=== PATIENT | male | born 1945 | race Caucasian/White ===

== ENCOUNTER 2020-05-26 13:00 | Outpatient (CLI) | payer MEDICARE, OTHER, SELFPAY ==
[2020-05-26 13:42] LABS: Hematocrit 34.9 % (42.0-52.0); Hemoglobin 11.9 g/dL (14.0-18.0); Immature Platelet Fraction Pct 8.2 % (0.9-11.2); Mean Corpuscular HGB Conc 34.1 g/dl (32-36); Mean Corpuscular Volume 96.7 fl (80-100); Mean Platelet Volume 11.7 fl (7.4-10.4); Platelet Count Result 132 k/mm3 (150-375); Red Blood Count 3.61 M/mm3 (4.6-6.20); Red Cell Distribution Width 12.5 % (11.5-14.5); White Blood Count 5.8 K/mm3 (4.5-10.0)
[2020-05-26 13:52] LABS: Alanine Aminotransferase 24 U/L (4-50); Albumin Level 4.6 g/dL (3.5-5.1); Alkaline Phosphatase 72 U/L (38-126); Anion Gap 5 mmol/L (8-16); Aspartate Amino Transferase 32 U/L (17-59); Bilirubin,Total 0.5 mg/dL (0.2-1.3); Blood Urea Nitrogen 30 mg/dL (9-20); Calcium 9.3 mg/dL (8.4-10.2); Carbon Dioxide 29 mmol/L (22-30); Chloride 105 mmol/L (98-107); Cholesterol 90 mg/dL (0-200); Estimated Glomerular Filt Rate > 60; Glucose 87 mg/dL (75-110); HDL Direct 40 mg/dL; Potassium 4.3 mmol/L (3.4-5.0); Sodium 139 mmol/L (137-145); Triglycerides 36 mg/dL (<150)
[2020-05-26 14:03] LABS: LDL Cholesterol Direct 43 mg/dL
[2020-05-26 14:22] LABS: Prostate Specific Antigen 0.2 ng/mL (< OR = 4.0)
[2020-05-26 14:40] LABS: Iron 64 ug/dL (49-181)
[2020-05-26 14:49] LABS: Percent Iron Saturation 22 % (20-50)
== END 2020-05-26 13:01 | disposition home or self-care (01) ==
PROVIDERS: PCP Family Medicine; Visit Provider Nurse Practitioner Family
DX: N28.9 Disorder of kidney and ureter, unspecified (principal); E78.5 Hyperlipidemia, unspecified; E11.65 Type 2 diabetes mellitus with hyperglycemia; E61.1 Iron deficiency; N40.0 Benign prostatic hyperplasia without lower urinary tract symptoms; Z12.5 Encounter for screening for malignant neoplasm of prostate; Z13.29 Encounter for screening for other suspected endocrine disorder
CPT/HCPCS: 36415; 80053; 80061; 83540; 83550; 84153; 84443; 85027; 85055; G0103

== ENCOUNTER 2020-10-16 14:45 | Emergency (ER) | payer MEDICARE, OTHER, SELFPAY ==
[2020-10-16 14:55] VITALS: BP 141/61; PULSE 79; RESP 16; TEMP 37.2; O2SAT 100
--- NOTE | 2020-10-16 15:14 | ED.EXTPRO ---
HPI - Extremity Problem General Chief complaint: Extremity Problem,Nontraumatic Stated complaint: pos hand infection Time Seen by Provider: 10/16/20 14:58 Source: patient and RN notes reviewed Mode of arrival: ambulatory Limitations: no limitations History of Present Illness HPI Narrative: Patient presents today complaining of redness and laceration to the base of the right thumb. Patient was cutting a piece of sheet metal with some tin snips 4 days ago when he cut his hand on the piece of metal. States the cut has been feeling, but the area around the cut has been becoming red and more painful. Denies numbness or tingling in the finger or hand. He is not up-to-date on his tetanus vaccine. Currently rates his pain 2/10 and has tried no [id number] treatment prior to arrival. MD Complaint: extremity pain and extremity swelling Related Data Allergies Allergy/AdvReac Type Severity Reaction Status Date / Time Penicillins Allergy Unknown Unknown Verified 05/26/20 11:16 Sulfa (Sulfonamide Allergy Unknown Unknown Verified 05/26/20 11:16 Antibiotics) Review of Systems Review of Systems: CONSTITUTIONAL: Denies body aches, fever, chills, or sweats. EYES: Denies visual changes, redness, or discharge. ENT: Denies rhinorrhea, congestion, sore throat, or otalgia. CARDIOVASCULAR: Denies chest pain, palpitations, or edema. RESPIRATORY: Denies cough or dyspnea. GASTROINTESTINAL: Denies abdominal pain, nausea, vomiting, or diarrhea. GENITOURINARY: Denies dysuria or hematuria. SKIN: Denies rash, itching, or wounds. Redness and pain to the right thumb MUSCULOSKELETAL: Denies back pain. NEUROLOGIC: Denies headache, numbness, tingling, or weakness. PSYCH: Denies depression or anxiety. [facility] Family History Family History Sibling Family history of diabetes mellitus in first degree relative Family history of coronary artery disease Mother Family history of malignant neoplasm of breast in first degree relative Social History Social History Smoking status: Never smoker Alcohol intake: never Comments At time of signature, I have reviewed and agree with nursing past medical, surgical, social and family history unless otherwise noted. Please see nursing chart for further information. There is no relevant family history pertinent to the presenting complaint Exam Narrative: GENERAL: Well-appearing, well-nourished, and in no acute distress. HEAD: Normocephalic, atraumatic. EYES: EOMI. No redness or drainage. Conjunctivae normal. ENT: Mucous membranes pink and moist. NECK: Normal AROM. CHEST: No respiratory distress. EXTREMITIES: Erythema and mild edema to the right thenar eminence. 2.5 cm healed laceration to the same area. Distal sensation intact. Capillary refill normal. Radial pulse normal. Full AROM of the right thumb without increased pain. No induration or fluctuance noted. SKIN: Warm, dry, no rash. Capillary refill normal. Normal skin turgor. NEURO: No focal deficits. Alert and oriented x3. Gait steady. PSYCH: Normal affect. No signs of depression or anxiety. Course Vital Signs Vital signs: Vital Signs Temperature 98.9 F 10/16/20 14:55 Pulse Rate 79 10/16/20 14:55 Respiratory Rate 16 10/16/20 14:55 Blood Pressure 141/61 H 10/16/20 14:55 Pulse Oximetry 100 10/16/20 14:55 Temperature 98.9 F 10/16/20 14:55 Pulse Rate 79 10/16/20 14:55 Respiratory Rate 16 10/16/20 14:55 Blood Pressure 141/61 H 10/16/20 14:55 Pulse Oximetry 100 10/16/20 14:55 Reviewed. Pt has been instructed to follow up with his PCP regarding his elevated blood pressure today. MDM - Extremity (Nontraumatic) Differential Diagnosis Differential diagnosis: Likely cellulitis and other (Abscess) Critical Care Time Critical Care Time Critical Care Time: No Discharge Plan Discharge Clinical Impressi
[2020-10-16] MEDS: TETANUS/DIPHTHERIA TOXOIDS ADSORB 0.5 ML VIAL (*BKC) IM (15:27)
== END 2020-10-16 15:32 | disposition home or self-care (01) ==
PROVIDERS: Emergency Provider Nurse Practitioner
DX: L03.113 Cellulitis of right upper limb (principal); Z23 Encounter for immunization; Z95.1 Presence of aortocoronary bypass graft
CPT/HCPCS: 90471; 90714; 99213; G0463

== ENCOUNTER 2020-10-25 11:38 | Outpatient (CLI) | payer MEDICARE, OTHER, SELFPAY ==
[2020-10-25 12:03] LABS: Basophils Percent Auto 0.5 % (0.2-1.2); Eosinophils Absolute Auto 0.3 K/mm3 (0-0.3); Eosinophils Percent Auto 4.5 % (0-4.4); Hematocrit 35.3 % (42.0-52.0); Immature Granulocyte Absolute 0.02 K/mm3 (0.00-0.031); Immature Granulocyte Percent A 0.3 % (0-0.5); Lymphocytes Absolute Auto 2.08 K/mm3 (0.9-3.2); Lymphocytes Percent Auto 35.7 % (18.3-44.2); Mean Corpuscular Hemoglobin 33.1 pg (26-34); Mean Corpuscular Volume 97.2 fl (80-100); Mean Platelet Volume 11.5 fl (7.4-10.4); Monocytes Absolute Auto 0.5 K/mm3 (0.1-0.6); Monocytes Percent Auto 8.1 % (2.6-8.5); Neutrophils Percent Auto 50.9 % (45.5-73.1); Platelet Count Result 147 k/mm3 (150-375); Red Blood Count 3.63 M/mm3 (4.6-6.20); Red Cell Distribution Width 12.3 % (11.5-14.5); White Blood Count 5.8 K/mm3 (4.5-10.0)
[2020-10-25 13:24] LABS: Folic Acid > 20.0 ng/mL (2.76->20)
== END 2020-10-25 11:39 | disposition home or self-care (01) ==
PROVIDERS: PCP Family Medicine; Visit Provider Nurse Practitioner Family
DX: Z13.29 Encounter for screening for other suspected endocrine disorder (principal); D64.9 Anemia, unspecified; E53.8 Deficiency of other specified B group vitamins; R53.83 Other fatigue; E55.9 Vitamin D deficiency, unspecified
CPT/HCPCS: 36415; 82306; 82607; 82746; 84443; 85025

== ENCOUNTER 2020-11-24 01:12 | Day surgery (SDC) | payer MEDICARE, OTHER, SELFPAY ==
[2020-11-17 13:06] VITALS: BMI 24.0
--- NOTE | 2020-11-24 09:19 | WPDANESEPPF ---
Anes - Initial Pre Proc Eval Procedure: Operation Date: 11/24/20 12:30 Proposed Procedures p Esophagogastroduodenoscopy - Terence Lane MD Date/Time: 11/24/20 09:19 Surgeon: Terence Lane MD Pre Op Diagnosis: dysphagia Patient Data Age: 75 Gender: M Height: 1.63 m Weight: 63.5 kg Allergies Allergy/AdvReac Type Severity Reaction Status Date / Time Penicillins Allergy Severe Other Verified 11/24/20 11:12 Sulfa (Sulfonamide Allergy Severe Other Verified 11/24/20 11:12 Antibiotics) Home Medications Medication Instructions Recorded Confirmed Type aspirin 81 mg tablet,delayed 81 mg PO DAILY #30 tablet 06/27/19 11/17/20 Rx release clopidogrel 75 mg tablet 75 mg PO DAILY #90 tablet 05/26/20 11/17/20 Rx rosuvastatin 40 mg tablet 40 mg PO DAILY #90 tablet 05/26/20 11/17/20 Rx Adult One Daily Multivitamin 1 cap PO DAILY 11/17/20 11/17/20 History ascorbic acid (vitamin C) 500 mg PO DAILY 11/17/20 11/17/20 History cholecalciferol (vitamin D3) 25 mcg PO DAILY 11/17/20 11/17/20 History [Vitamin D3] omega-3 fatty acids-vitamin E 1 cap PO DAILY 11/17/20 11/17/20 History [Fish Oil] potassium 99 mg PO TID 11/17/20 11/17/20 History Patient hx anesthesia problems: none Family hx anesthesia problems: none Results Review: All pre-operative results and documents have been reviewed as part of the pre-operative evaluation. [facility] Past Medical History Medical History (Updated 11/24/20 @ 09:22 by Jaylon Anderson MD) Benign hypertension BMI 20.0-20.9, adult CAD (coronary artery disease) Depression GERD (gastroesophageal reflux disease) History of diabetes mellitus, type II Hyperlipidemia Thrombocytopenia Uncontrolled type 2 diabetes mellitus with complication, without long-term current use of insulin Surgical History Surgical History (Updated 11/24/20 @ 09:22 by Jaylon Anderson MD) S/P CABG (coronary artery bypass graft) Family History Family History Sibling Family history of diabetes mellitus in first degree relative Family history of coronary artery disease COVID-19 Mother Family history of malignant neoplasm of breast in first degree relative Breast cancer Father , MVC No problems noted. 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 Informed Consent: The patient's anesthetic plan and its attendant risks and benefits were discussed with the patient/family/POA. Questions were solicited and answers provided to the satisfaction of the patient/family/POA.
--- NOTE | 2020-11-24 11:13 | SUR.PREOP ---
Patient took his last dose of Plavix on Sunday. Dr Mejía aware- no new orders at this time. Okay to proceed.
[2020-11-24 11:14] VITALS: BP 160/56; PULSE 76; RESP 16; TEMP 36.8; O2SAT 98
[2020-11-24] MEDS: LACTATED RINGERS 1,000 ML 150 ML IV CONT (11:23)
[2020-11-24] MEDS: BENZOCAINE (*SP) 60 ML SPRAY CAN (HURRICAINE) 1 SPRAY MUCOUS MEM (12:08)
--- NOTE | 2020-11-24 12:16 | PM.HPGS ---
History of Present Illness History of Present Illness Consent: Risks, benefits, and alternatives have been discussed and questions answered. Patient agrees to proceed with procedure. Chief complaint: dysphagia Narrative: Milton Del Rosario is a 75 year old male dysphagia after taking a new medication Review of Systems Constitutional: Constitutional: Denies headache(s) and Denies weakness Eyes: Eyes: Denies blurry vision ENT: Reports Normal hearing present, Denies headache(s) and Denies neck pain Cardiovascular: Cardiovascular: Denies chest pain and Denies dyspnea Respiratory: Respiratory: Denies dyspnea Gastrointestinal: Gastrointestinal: Reports no additional gastrointestinal complaints Genitourinary: Genitourinary: Denies dysuria Musculoskeletal: Musculoskeletal: Denies neck pain Integumentary/Breasts: Skin/Breast: Denies dry skin Neurologic: Reports Normal hearing present, Denies headache(s) and Denies weakness Psychiatric: Psychiatric: Denies anxiety Endocrine: Endocrine: Denies change in body appearance Hematologic/Lymphatic: Hematologic/Lymphatic: Denies easy bleeding Allergic/Immunologic: Allergic/Immunologic: Denies urticaria PMF Past Medical History Medical History (Updated 11/24/20 @ 09:22 by Jaylon Anderson MD) Benign hypertension BMI 20.0-20.9, adult CAD (coronary artery disease) Depression GERD (gastroesophageal reflux disease) History of diabetes mellitus, type II Hyperlipidemia Thrombocytopenia Uncontrolled type 2 diabetes mellitus with complication, without long-term current use of insulin Surgical History Surgical History (Updated 11/24/20 @ 09:22 by Jaylon Anderson MD) S/P CABG (coronary artery bypass graft) Family History Family History Sibling Family history of diabetes mellitus in first degree relative Family history of coronary artery disease COVID-19 Mother Family history of malignant neoplasm of breast in first degree relative Breast cancer Father , MVC No problems noted. 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 Gender identity (if verbalized by the patient): Male Spiritual care concerns: No Meds Home Medications and Allergies Home Medications Medication Instructions Recorded Confirmed Type aspirin 81 mg tablet,delayed 81 mg PO DAILY #30 tablet 06/27/19 11/17/20 Rx release clopidogrel 75 mg tablet 75 mg PO DAILY #90 tablet 05/26/20 11/17/20 Rx rosuvastatin 40 mg tablet 40 mg PO DAILY #90 tablet 05/26/20 11/17/20 Rx Adult One Daily Multivitamin 1 cap PO DAILY 11/17/20 11/17/20 History ascorbic acid (vitamin C) 500 mg PO DAILY 11/17/20 11/17/20 History cholecalciferol (vitamin D3) 25 mcg PO DAILY 11/17/20 11/17/20 History [Vitamin D3] omega-3 fatty acids-vitamin E 1 cap PO DAILY 11/17/20 11/17/20 History [Fish Oil] potassium 99 mg PO TID 11/17/20 11/17/20 History Allergies Allergy/AdvReac Type Severity Reaction Status Date / Time Penicillins Allergy Severe Other Verified 11/24/20 11:12 Sulfa (Sulfonamide Allergy Severe Other Verified 11/24/20 11:12 Antibiotics) Vital Signs Vital Signs - 24 hr 11/24/20 11:14 Temperature 98.2 F Pulse Rate 76 Respiratory Rate 16 Blood Pressure 160/56 H Pulse Oximetry 98 Exam Const: General: comfortable and no acute distress HENMT: General nose exam: Normal nares present Eyes: General: appearance normal, both eyes and all related structures Neck: Neck: no JVD Resp: Auscultation: clear to auscultation bilaterally Cardio: Rate: regular rate Rhythm: regular rhythm GI: Inspection: non-distended GI Pa
[2020-11-24 12:21] VITALS: BP 99/55; PULSE 56; RESP 14; O2SAT 100
[2020-11-24 12:31] VITALS: BP 111/54; PULSE 59; RESP 20; O2SAT 100
[2020-11-24 12:41] VITALS: BP 119/62; PULSE 56; RESP 20; O2SAT 100
== END 2020-11-24 12:59 | disposition home or self-care (01) ==
PROVIDERS: PCP Family Medicine; Visit Provider Internal Medicine Gastroenterology
PROC: 0DJ08ZZ Inspection of Upper Intestinal Tract, Via Natural or Artificial Opening Endoscopic (ICD-10-PCS; CPT 43235; principal; 2020-11-24 12:30)
DX: R13.10 Dysphagia, unspecified (principal); K29.70 Gastritis, unspecified, without bleeding; K21.9 Gastro-esophageal reflux disease without esophagitis; I10 Essential (primary) hypertension; I25.10 Atherosclerotic heart disease of native coronary artery without angina pectoris; F32.9 Major depressive disorder, single episode, unspecified; E78.5 Hyperlipidemia, unspecified; E11.9 Type 2 diabetes mellitus without complications; Z95.1 Presence of aortocoronary bypass graft; Z79.02 Long term (current) use of antithrombotics/antiplatelets; Z79.82 Long term (current) use of aspirin
CPT/HCPCS: 43239; 88305; J7120

== ENCOUNTER 2021-02-08 09:49 | Outpatient (CLI) | payer MEDICARE, OTHER, SELFPAY ==
--- NOTE | ~2021-02-08 | MR_ITS ---
EXAMINATION: MR brain/brain stem wo con DATE: 02/08/2021 10:58 INDICATION: Headache, unspecified. TECHNIQUE: Magnetic resonance imaging (MRI) of the brain and brainstem was performed without intraven ous contrast. Sequences included sagittal and axial T1-weighted FSE, axial diffusion-weighted FS EPI, axial T2*-weighted GRE, axial T2-weighted FLAIR Propeller, and axial T2-weighted Propeller. Apparent diffusion coefficient (ADC) maps were created. COMPARISON: Brain MRI 08/30/2015 FINDINGS: There are scattered areas of nonspecific increased T2-weighted signal intensity in the cere bral white matter. There is no intracranial hemorrhage, acute infarction, or abnormal intracranial ma ss lesion. The ventricles are normal in size. There are likely changes of ocular lens replacement herberth geries. The mastoid air cells are normal. There is mucosal thickening in the paranasal sinuses includ ing near complete opacification of left maxillary sinus. IMPRESSION: 1. Worsened moderate nonspecific cerebral white matter disease, which likely represents chronic small vessel ischemic disease. Reviewed, dictated and finalized at location [facility]. [facility] [employer]CH[employer]ICAL [employer]ITER IMPRESSION: 1. Worsened moderate nonspecific cerebral white matter disease, which likely re presents chronic small vessel ischemic disease.
== END 2021-02-08 09:50 | disposition home or self-care (01) ==
LOC: ANHIMG 10:03
PROVIDERS: PCP Family Medicine; Visit Provider Nurse Practitioner Family
DX: H53.9 Unspecified visual disturbance (principal); H91.90 Unspecified hearing loss, unspecified ear; R26.89 Other abnormalities of gait and mobility; R41.3 Other amnesia; R51.9 Headache, unspecified; R93.0 Abnormal findings on diagnostic imaging of skull and head, not elsewhere classified
CPT/HCPCS: 70551

== ENCOUNTER 2021-04-29 14:24 | Outpatient (CLI) | payer MEDICARE, SELFPAY ==
--- NOTE | ~2021-04-29 | CT_ITS ---
EXAMINATION: CT sinus wo con DATE: 04/29/2021 14:57 INDICATION: Perineal sinus symptoms TECHNIQUE: Computed tomography (CT) of the paranasal sinuses was performed without contrast. Iterativ e reconstruction technique was employed. Exam dose: 286.97 mGy-cm total exam DLP. COMPARISON: 01/31/2021 MRI brain/brainstem FINDINGS: There is slight leftward bowing of the nasal septum. Interlamellar cell of both middle nasal turbinates, more prominent on the right. The nasal turbinates are moderately prominent in size. The left middle nasal turbinate is partially engulfed by soft tissue thickening which opacifies much of the middle meatus, with soft tissue extension into the completely opacified left maxillary sinus. There is some calcification of the left maxillary sinus and middle meatus soft tissue thickening. There is complete opacification of the left ostiomeatal units. There is mild soft tissue thickening of the right maxillary ostium and infundibulum There is patchy opacification of ethmoid air cells bilaterally. There is prominent soft tissue thickening of the diminutive right frontal sinus and moderately promin ent opacity along the lower aspect of the left frontal sinus, extending into the left frontal ethmoid recess. The right maxillary sinus is largely clear except for minimal mucoperiosteal thickening along the inf eromedial aspect. The sphenoid sinuses are clear. The mastoid air cells are normally developed and aerated. Middle and inner ear apparatus are unremark able. IMPRESSION: Completely opacified left maxillary sinus with thinning and medial bowing and some areas of probable destruction of the medial wall, with soft tissue extending into the middle meatus. 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 Reviewed, dictated and finalized at location [facility]. IMPRESSION: Completely opacified left maxillary sinus with thinning and medial bowing and some areas of probable destruction of the medial wall, with soft ti ssue extending into the middle meatus. Findings are consistent with left maxill fabricio sinus mucocele; ENT consultation is recommended Complete opacification of left ostiomeatal unit Mild soft tissue thickening at the right maxillary ostium and infundibulum Patchy opacification of ethmoid air cells bilaterally Mucoperiosteal thickening of both frontal sinuses, minimally involving the righ t maxillary sinus Interlamellar cell of both middle nasal turbinates
== END 2021-04-29 14:25 | disposition home or self-care (01) ==
PROVIDERS: PCP Family Medicine; Visit Provider Otolaryngology
DX: J32.0 Chronic maxillary sinusitis (principal); J34.2 Deviated nasal septum; J34.3 Hypertrophy of nasal turbinates; J34.89 Other specified disorders of nose and nasal sinuses; R09.81 Nasal congestion; R09.82 Postnasal drip; R44.8 Other symptoms and signs involving general sensations and perceptions; Z87.09 Personal history of other diseases of the respiratory system
CPT/HCPCS: 70486

== ENCOUNTER 2021-05-20 13:20 | Outpatient (CLI) | payer MEDICARE, SELFPAY ==
--- NOTE | 2021-05-20 13:56 | ECG_ITS ---
Measurements Intervals [place] Rate: 55 P: 19 TN: 179 QRS: 86 QRSD: 159 T: 62 QT: 472 QTc: 453 Interpretive Statements SINUS BRADYCARDIA LEFT BUNDLE BRANCH BLOCK NO PREVIOUS ECG AVAILABLE FOR COMPARISON Electronically Signed On 05-20-2021 14:40:25 CDT by Fadi Christy M.D.
== END 2021-05-20 13:21 | disposition home or self-care (01) ==
LOC: ANHSURGERY 13:24
PROVIDERS: PCP Family Medicine; Visit Provider Otolaryngology
DX: Z01.810 Encounter for preprocedural cardiovascular examination (principal); I51.9 Heart disease, unspecified; R00.1 Bradycardia, unspecified; I44.7 Left bundle-branch block, unspecified
CPT/HCPCS: 93005

== ENCOUNTER 2021-06-27 10:22 | Outpatient (CLI) | payer MEDICARE, SELFPAY ==
--- NOTE | ~2021-06-27 | NM_ITS ---
EXAMINATION: NM deric stress w perfusion DATE: 06/27/2021 13:13 INDICATION: Dyspnea on exertion TECHNIQUE: Rest images were obtained following intravenous administration of 9 mCi Tc99m tetrofosmin (Myoview). The patient was infused intravenously with Lexiscan (Regadenoson). Then, 28.3 mCi Tc99m te trofosmin (Myoview) was administered intravenously, and stress images were obtained. Data was reconst ructed into short axis and horizontal and vertical long axis SPECT images. Gated SPECT images were al so obtained. COMPARISON: None. FINDINGS: There is a moderate severity fixed perfusion defect at the apical, apical septal, apical an terior, apical lateral and to lesser degree apical inferior segments. No reversible ischemia. There i s normal left ventricular chamber size, wall motion and ejection fraction. Left ventricular ejection fraction measures >70%. IMPRESSION: 1. Moderate-sized moderate severity fixed perfusion defect consistent with infarct involving the apic al, apical septal, apical anterior, apical lateral and apical inferior segments. 2. Left ventricular ejection fraction measuring >70%. Reviewed, dictated and finalized at location A. IMPRESSION: 1. Moderate-sized moderate severity fixed perfusion defect consistent with infa rct involving the apical, apical septal, apical anterior, apical lateral and ap ical inferior segments. 2. Left ventricular ejection fraction measuring >70%.
--- NOTE | 2021-06-27 10:51 | EST_ITS ---
Patient Info Name: Milton Del Rosario Age: 75 years : 1945 Gender: Male Ht: 64 in Wt: 145 lbs BSA: 1.73 m2 HR: 65 bpm BP: 146 / 92 mmHg Heart Rhythm: Left Bundle Branch Block Exam Date: 06/27/2021 11:34 AM Exam Location: [facility] Stress Patient Status: Outpatient Admit Date: 06/27/2021 Staff Ordering Physician: Matt Murphy DO Attending Provider: Matt Murphy DO Exercise Technologist: Sherie Heredia CT Exercise Physician: Matt Murphy DO Exam Type: CA stress deric w NM Study Info Indications R06.00 - Dyspnea, unspecified A regadenoson stress test was performed. Summary 1. 1. Inconclusive lexiscan stress test for ischemic ST changes by ECG criteria due to baseline LBBB. 2. 2. Stable hemodynamics throughout the test. 3. 3. Nuclear scan to follow and will be reported separately. Please correlate with it. 4. 4. Patient informed of the above results. Protocol: Lexiscan Stress ECG Details Stage: REST Duration (min): 0 min : 52 sec HR (bpm): 65 SBP (mmHg): 149 DBP (mmHg): 62 Stage: REST Duration (min): 4 min : 15 sec HR (bpm): 60 SBP (mmHg): 149 DBP (mmHg): 62 Stage: REST Duration (min): 6 min : 2 sec HR (bpm): 58 SBP (mmHg): 149 DBP (mmHg): 62 Stage: STAGE 1 Duration (min): 1 min : 0 sec HR (bpm): 85 SBP (mmHg): 117 DBP (mmHg): 44 Stage: RECOVERY Duration (min): 1 min : 0 sec HR (bpm): 96 SBP (mmHg): 117 DBP (mmHg): 44 Stage: RECOVERY Duration (min): 2 min : 0 sec HR (bpm): 93 SBP (mmHg): 117 DBP (mmHg): 44 Stage: RECOVERY Duration (min): 2 min : 27 sec HR (bpm): 87 SBP (mmHg): 121 DBP (mmHg): 52 Rest HR: 58 bpm Peak HR: 100 bpm Rest Sys BP: 149 mmHg Peak Sys BP: 121 mmHg Max Pred HR: 147 bpm % Max Pred HR: 68 % Target HR: 125 bpm Max RPP: 12,100 bpm*mmHg Termination Reason: Completed protocol Cardiac Symptoms: Shortness of breath Total Time: 1 min : 0 sec Rest English BP: 62 mmHg Peak English BP: 52 mmHg Total Dose: 0.4 mg Resting ECG Sinus rhythm, LBBB. Stress ECG No ST changes. Arrhythmias None. Report Signatures
== END 2021-06-27 10:23 | disposition home or self-care (01) ==
PROVIDERS: PCP Family Medicine; Visit Provider Internal Medicine Cardiovascular Disease
DX: R06.00 Dyspnea, unspecified (principal)
CPT/HCPCS: 78452; 93017; A9502

== ENCOUNTER 2021-07-08 00:16 | Day surgery (SDC) | payer MEDICARE, SELFPAY ==
--- NOTE | 2021-05-16 14:15 | PC.NURSE ---
Report to the Outpatient Waiting Room, entrance under the green pavilion located off [facility], at time _0815 on date ___05/27/21____. OR Time: __1014 . - You and your visitor will be asked a series of questions to screen for COVID 19 for your protection. - A mask is required within the hospital. Preoperative COVID Testing Requirements: No COVID Test needed if: (proof is required; if not received patient will have Rapid Test prior to entry) - Patient has received COVID Vaccine at least 14 days prior to procedure date or - Patient has positive COVID test result within last 90 days of surgery date. COVID Test needed if above criteria is not met If not COVID vaccinated a COVID test must be conducted within 72 hours of surgery and patient is asked to isolate self from time of testing until procedure. You will go to the [facility] for your COVID testing. The [facility] site is located at the corner of [address] [facility]. You will only be called if COVID results are positive and your surgeon may reschedule your elective surgery date. Patients may have clear liquids (water, carbonated beverages, clear teas, apple juice) until 3 hours prior to surgery with a maximum of 20 ounces. - No food from midnight until time of surgery - Infants may have breast milk until 4 hours before surgery, infant formula 6 hours prior to surgery. - Children will be allowed to drink immediately following surgery. If applicable, please bring a bottle or sippy cup to assist with drinking. Juice, water, soda, and popsicles are readily available. For infants on formula, please bring formula the day of surgery. Pacifiers are allowed. Take the following medications with a SIP of water the morning of surgery: __DOXYCYCLINE.PREDNISONE Medications to discontinue per physician ___CALL DR LAZCANO REGARDING WHEN TO STOP PLAVIX, ALL VITAMINS AND SUPPLEMENTS E 3 DAYS PRE OP Date to take last dose__ALL VIT/SUPP 4/11/22 Please no make-up, nail micronesian, hairspray, perfume, deodorant, or body powder the day of surgery. No jewelry (including any body piercings) or valuables the day of surgery, leave them at home. Please take a shower or bath the night before, or the morning of, surgery with an antibacterial soap. Wear comfortable, loose fitting clothing. Children are encouraged to wear pajamas. - Jewelry must be removed prior to entering the operating room. Rings and piercings that are not removed may be cut off. - The hospital will not accept responsibility for valuables. - Please leave all valuables, including medications, at home the day of surgery. If you are going home after surgery, a licensed residential recycle driver must drive you home. - NO public transportation without another adult. - We recommend that an adult stay with you for 24 hours following discharge. - We also recommend that you do not drive, make important decision, drink alcoholic beverages, or take any drugs that were not prescribed by your health care provider for at least 24 hours after your discharge time. For Pediatric surgeries, we recommend two adults accompany the child home (only one inside the building at this time). One visitor will be allowed to accompany the patient into the hospital. Patients visitor will be instructed to remain with patient at all times or leave the building. We will allow the visitor to come back to the postoperative area when patient is ready. Follow any additional instructions given to you from your surgeon. Telephone instructions given to __FRIEND CHUN BRASHER and asked if any additional questions and then verbalized understanding. Patient advised to call surgeon office or pre surgery nurse liaison [phone] if any additional questions.
[2021-05-16 14:19] VITALS: BMI 24.0
--- NOTE | 2021-05-26 16:04 | PM.IMHP ---
H&P: HPI History of Present Illness Date/Time: 05/26/21 16:04 Patient presents for planned surgical procedure. No change in symptoms no change in history. Chief Complaint: Odontogenic sinusitis chronic sinusitis turbinate hypertrophy nasal obstruction nasal congestion collins [place] Review of Systems Constitutional: Constitutional: Denies fatigue, Denies fever(s) and Denies lethargy Eyes: Eyes: Denies blurry vision and Denies change in vision ENT: Reports as per HPI Cardiovascular: Cardiovascular: Denies chest pain Respiratory: Respiratory: Denies cough Endocrine: Endocrine: Denies fatigue Hematologic/Lymphatic: Hematologic/Lymphatic: Denies easy bleeding, Denies easy bruising and Denies lymphadenopathy Allergic/Immunologic: Allergic/Immunologic: Denies seasonal rhinorrhea [facility] Past Medical History Medical History Benign hypertension BMI 20.0-20.9, adult BMI 21.0-21.9, adult Depression GERD (gastroesophageal reflux disease) History of diabetes mellitus, type II Hyperlipidemia Thrombocytopenia Uncontrolled type 2 diabetes mellitus with complication, without long-term current use of insulin Surgical History Surgical History S/P CABG (coronary artery bypass graft) Family History Family History Sibling Family history of diabetes mellitus in first degree relative Family history of coronary artery disease COVID-19 Mother Family history of malignant neoplasm of breast in first degree relative Breast cancer Father , MVC No problems noted. 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 Gender identity (if verbalized by the patient): Male Spiritual care concerns: No Meds Home Medications and Allergies Home Medications Medication Instructions Recorded Confirmed Type omega-3 fatty acids-vitamin E 1 cap PO DAILY 11/17/20 05/16/21 History [Fish Oil] potassium 99 mg PO DAILY 11/17/20 05/16/21 History clopidogrel 75 mg tablet 75 mg PO DAILY #90 tablet 01/28/21 05/16/21 Rx acetaminophen 500 mg tablet 1,000 mg PO Q6H PRN tablet 03/02/21 05/16/21 History ascorbic acid (vitamin C) 500 mg 1 g PO DAILY tablet 03/02/21 05/16/21 History tablet calcium carbonate 200 mg calcium 200 mg PO BID PRN 03/02/21 05/16/21 History (500 mg) chewable tablet cholecalciferol (vitamin D3) 25 50 mcg PO DAILY tablet 03/02/21 05/16/21 History mcg (1,000 unit) tablet dextromethorphan-guaifenesin 30 1 tablet PO Q12H PRN 03/02/21 05/16/21 History mg-600 mg tablet extended [id number] hr docusate sodium 100 mg capsule 100 mg PO DAILY 03/02/21 05/16/21 History donepezil 5 mg tablet 5 mg PO QHS #30 tablet 03/02/21 05/16/21 Rx vitamin E (dl, acetate) 180 mg 180 mg PO DAILY 03/02/21 05/16/21 History (400 unit) capsule doxycycline hyclate 100 mg capsule 100 mg PO BID #10 cap 05/23/21 Rx prednisone 20 mg tablet 20 mg PO DAILY #3 tablet 05/23/21 Rx Allergies Allergy/AdvReac Type Severity Reaction Status Date / Time Penicillins Allergy Severe NAUSEA AND Verified 05/16/21 13:52 RASH Sulfa (Sulfonamide Allergy Severe Nausea AND Verified 05/16/21 13:53 Antibiotics) RASH Exam Const: General: cooperative, healthy appearing, comfortable, well developed and alert HENMT: Head: normal to inspection, normocephalic and atraumatic Ears: hearing grossly normal bilaterally, external ears normal, TM's normal bilaterally and EAC's normal General nose exam: Normal external nose present, Normal nares present and Other nasal findings present ( see previous pro
--- NOTE | 2021-05-27 06:52 | WPDANESEPPF ---
Anes - Initial Pre Proc Eval Procedure: Operation Date: 05/27/21 11:45 Proposed Procedures p Image Guided Endoscopic Bilateral Maxillary Antrostomy, Anterior Ethmoidectomy, Frontal Sinusotomy, Bilateral Resection Felipa Bullosa, Bilateral Inferior Turbinectomy with Outfracture - Regan Palumbo MD Date/Time: 05/27/21 06:52 Surgeon: Regan Palumbo MD Pre Op Diagnosis: Chronic Sinusitis Patient Data Age: 75 Gender: M Height: 1.63 m Weight: 63.5 kg Allergies Allergy/AdvReac Type Severity Reaction Status Date / Time Penicillins Allergy Severe NAUSEA AND Verified 05/16/21 13:52 RASH Sulfa (Sulfonamide Allergy Severe Nausea AND Verified 05/16/21 13:53 Antibiotics) RASH Home Medications Medication Instructions Recorded Confirmed Type omega-3 fatty acids-vitamin E 1 cap PO DAILY 11/17/20 05/16/21 History [Fish Oil] potassium 99 mg PO DAILY 11/17/20 05/16/21 History clopidogrel 75 mg tablet 75 mg PO DAILY #90 tablet 01/28/21 05/16/21 Rx acetaminophen 500 mg tablet 1,000 mg PO Q6H PRN tablet 03/02/21 05/16/21 History ascorbic acid (vitamin C) 500 mg 1 g PO DAILY tablet 03/02/21 05/16/21 History tablet calcium carbonate 200 mg calcium 200 mg PO BID PRN 03/02/21 05/16/21 History (500 mg) chewable tablet cholecalciferol (vitamin D3) 25 50 mcg PO DAILY tablet 03/02/21 05/16/21 History mcg (1,000 unit) tablet dextromethorphan-guaifenesin 30 1 tablet PO Q12H PRN 03/02/21 05/16/21 History mg-600 mg tablet extended [id number] hr docusate sodium 100 mg capsule 100 mg PO DAILY 03/02/21 05/16/21 History donepezil 5 mg tablet 5 mg PO QHS #30 tablet 03/02/21 05/16/21 Rx vitamin E (dl, acetate) 180 mg 180 mg PO DAILY 03/02/21 05/16/21 History (400 unit) capsule doxycycline hyclate 100 mg capsule 100 mg PO BID #10 cap 05/23/21 Rx prednisone 20 mg tablet 20 mg PO DAILY #3 tablet 05/23/21 Rx Results Review: All pre-operative results and documents have been reviewed as part of the pre-operative evaluation. [facility] Past Medical History Medical History (Updated 05/27/21 @ 06:53 by Seferino Ramírez DO) Benign hypertension BMI 20.0-20.9, adult BMI 21.0-21.9, adult Dementia Depression GERD (gastroesophageal reflux disease) History of diabetes mellitus, type II Hyperlipidemia Thrombocytopenia Uncontrolled type 2 diabetes mellitus with complication, without long-term current use of insulin Surgical History Surgical History (Updated 05/27/21 @ 06:53 by Seferino Ramírez DO) S/P CABG (coronary artery bypass graft) x5 vessel, 2016 Family History Family History Sibling Family history of diabetes mellitus in first degree relative Family history of coronary artery disease COVID-19 Mother Family history of malignant neoplasm of breast in first degree relative Breast cancer Father , MVC No problems noted. Social History Social History Smoking status: Never smoker Second hand tobacco smoke exposure: Yes Alcohol intake: never Substance use: never Substance use type: does not use Living arrangements: alone Additional occupation/education comments: [employer] Gender identity (if verbalized by the patient): Male Spiritual care concerns: No Anes - Eval Final PreProcedure Day of Procedure 05/27/21 06:52 Patient weight: normal Heart: regular rate and rhythm Lungs: clear to auscultation and normal air movement Airway: Mallampati scale class II Neurological: alert and oriented Last oral intake: >/= 8 hours ASA classification: III Emergent: no Anesthetic plan: proceed Anesthesia type and monitoring: general ETT and standard monitoring Results Review: All pre-operative results and documents have been reviewed as part of the pre-operative evaluation. Informed Consent: The patient's anesthetic plan and its attendant ris
--- NOTE | 2021-05-27 07:12 | WPDHPUPDATE1 ---
History and Physical Update Update Date/Time: 05/27/21 07:12 History and Physical has been reviewed, including an updated exam of the patient. There are NO changes in the patient's condition. Risks, benefits, and alternatives have been discussed and questions answered. Patient agrees to proceed with procedure.
--- NOTE | 2021-05-27 08:37 | WPDHPUPDATE1 ---
History and Physical Update Update Date/Time: 05/27/21 08:37 Patient has a new left bundle branch block. Discussed with Anesthesiology. Case canceled until cardiology clears patient.
--- NOTE | 2021-07-04 11:36 | PC.NURSE ---
Report to the Outpatient Waiting Room, entrance under the green pavilion located off [facility], at time _1000 on date __07/08/21 . OR Time: ___1200 . - You and your visitor will be asked a series of questions to screen for COVID 19 for your protection. - Only one visitor is allowed at this time. - The patient visitor is requested to leave or wait in car when not with patient. - A mask is required within the hospital. Patients may have clear liquids (water, carbonated beverages, clear teas, apple juice) until 3 hours prior to surgery with a maximum of 20 ounces. - No food from midnight until time of surgery - Infants may have breast milk until 4 hours before surgery, infant formula 6 hours prior to surgery. - Children will be allowed to drink immediately following surgery. If applicable, please bring a bottle or sippy cup to assist with drinking. Juice, water, soda, and popsicles are readily available. For infants on formula, please bring formula the day of surgery. Pacifiers are allowed. Take the following medications with a SIP of water the morning of surgery: ____DOXYCYCLINE AND PREDNISONE Medications to discontinue per physician _[place] PLAVIX AND ALL VITAMINS AND SUPPLEMENTS OF TODAY PER DR LAZCANO Date to take last dose___07/04/21 Please no make-up, nail somali, hairspray, perfume, deodorant, or body powder the day of surgery. No jewelry (including any body piercings) or valuables the day of surgery, leave them at home. Please take a shower or bath the night before, or the morning of, surgery with an antibacterial soap. Wear comfortable, loose fitting clothing. Children are encouraged to wear pajamas. - Jewelry must be removed prior to entering the operating room. Rings and piercings that are not removed may be cut off. - The hospital will not accept responsibility for valuables. - Please leave all valuables, including medications, at home the day of surgery. If you are going home after surgery, a licensed sweeper driver must drive you home. - NO public transportation without another adult. - We recommend that an adult stay with you for 24 hours following discharge. - We also recommend that you do not drive, make important decision, drink alcoholic beverages, or take any drugs that were not prescribed by your health care provider for at least 24 hours after your discharge time. For Pediatric surgeries, we recommend two adults accompany the child home (only one inside the building at this time). Follow any additional instructions given to you from your surgeon. If you or anyone in your household have experienced Covid symptoms in the past week, please notify your surgeon or the nurse liaison at the phone number below for possible testing. Telephone instructions given to ADAN SANTIAGO) and asked if any additional questions and then verbalized understanding. Patient advised to call surgeon office or pre surgery nurse liaison [phone] if any additional questions.
[2021-07-04 11:38] VITALS: BMI 24.0
--- NOTE | 2021-07-07 18:17 | PM.IMHP ---
H&P: HPI History of Present Illness Date/Time: 07/07/21 18:17 Chief Complaint: sinusitis nasal obstruction nasal congestion turbinate hypertrophy odontogenic sinusitis facial pain facial pressure postnasal drainage Narrative: patient presents for planned surgical procedure no change in symptoms no change in history PMFSH Past Medical History Medical History Benign hypertension BMI 20.0-20.9, adult BMI 21.0-21.9, adult Dementia Depression GERD (gastroesophageal reflux disease) History of diabetes mellitus, type II Hyperlipidemia Left bundle branch block (LBBB) on electrocardiogram SOB (shortness of breath) Thrombocytopenia Uncontrolled type 2 diabetes mellitus with complication, without long-term current use of insulin Surgical History Surgical History S/P CABG (coronary artery bypass graft) x5 vessel, 2016 Family History Family History Sibling Family history of diabetes mellitus in first degree relative Family history of coronary artery disease COVID-19 Mother Family history of malignant neoplasm of breast in first degree relative Breast cancer Father , MVC No problems noted. 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 Gender identity (if verbalized by the patient): Male Spiritual care concerns: No Meds Home Medications and Allergies Home Medications Medication Instructions Recorded Confirmed Type omega-3 fatty acids-vitamin E 1 cap PO DAILY 11/17/20 07/04/21 History 1,000 mg capsule potassium 99 mg tablet 99 mg PO DAILY 11/17/20 07/04/21 History clopidogrel 75 mg tablet (Plavix) 75 mg PO DAILY #90 tabs 01/28/21 07/04/21 Rx acetaminophen 500 mg tablet 1,000 mg PO Q6H PRN Pain 03/02/21 07/04/21 History (Tylenol Extra Strength) ascorbic acid (vitamin C) 500 mg 1 g PO DAILY 03/02/21 07/04/21 History tablet calcium carbonate 200 mg calcium 200 mg PO BID PRN Heartburn 03/02/21 07/04/21 History (500 mg) chewable tablet (Tums) cholecalciferol (vitamin D3) 25 50 mcg PO DAILY 03/02/21 07/04/21 History mcg (1,000 unit) tablet (Vitamin D3) dextromethorphan-guaifenesin 30 1 tablet PO Q12H PRN Cough 03/02/21 07/04/21 History mg-600 mg tablet extended [id number] hr (Mucinex DM) docusate sodium 100 mg capsule 100 mg PO DAILY 03/02/21 07/04/21 History vitamin E (dl, acetate) 180 mg 180 mg PO DAILY 03/02/21 07/04/21 History (400 unit) capsule donepezil 5 mg tablet (Aricept) 5 mg PO QHS #30 tabs 06/07/21 07/04/21 Rx doxycycline hyclate 100 mg capsule 100 mg PO BID #20 caps 07/04/21 07/04/21 Rx prednisone 10 mg tablet 10 mg PO DAILY #3 tabs 07/04/21 07/04/21 Rx Allergies Allergy/AdvReac Type Severity Reaction Status Date / Time Penicillins Allergy Severe NAUSEA AND Verified 07/04/21 11:26 RASH Sulfa (Sulfonamide Allergy Severe Nausea AND Verified 07/04/21 11:26 Antibiotics) RASH Exam HENMT: Other: normal other than turbinate hypertrophy Assessment and Plan Assessment and plan (1) Collins bullosa: Code(s): J34.89 - Other specified disorders of nose and nasal sinuses Status: Acute Assessment and Plan: plan is for the OR for image guided bilateral endoscopic maxillary antrostomies, anterior ethmoidectomies, and frontal sinusotomies as well as bilateral collins resection as well as turbinate reduction and outfracture. . risks were discussed including bleeding infection need for prolonged antibiotics steroids CSF leak brain damage blindness change in vision need for postoperative time off work
[2021-07-08] VITALS (8 sets, daily range): BP systolic 122–146; BP diastolic 45–92; PULSE 59–80; RESP 12–19; TEMP 36.3–36.6; O2SAT 98–100
--- NOTE | 2021-07-08 07:16 | WPDHPUPDATE1 ---
History and Physical Update Update Date/Time: 07/08/21 07:16 History and Physical has been reviewed, including an updated exam of the patient. There are NO changes in the patient's condition. Risks, benefits, and alternatives have been discussed and questions answered. Patient agrees to proceed with procedure.
--- NOTE | 2021-07-08 09:48 | WPDANESEPPF ---
Anes - Initial Pre Proc Eval Procedure: Operation Date: 07/08/21 11:00 Proposed Procedures p Image Guided Endoscopic Bilateral Maxillary Antrostomy, Bilateral Anterior Ethmoidectomy, Frontal Sinusotomy, Bilateral Resection Felipa Bullosa, Bilateral Inferior Turbinectomy with Outfracture - Regan Palumbo MD Date/Time: 07/08/21 09:48 Surgeon: Regan Palumbo MD Pre Op Diagnosis: Chronic Sinusitis Patient Data Age: 76 Gender: M Height: 1.63 m Weight: 63.6 kg Allergies Allergy/AdvReac Type Severity Reaction Status Date / Time Penicillins Allergy Severe NAUSEA AND Verified 07/04/21 11:26 RASH Sulfa (Sulfonamide Allergy Severe Nausea AND Verified 07/04/21 11:26 Antibiotics) RASH Home Medications Medication Instructions Recorded Confirmed Type omega-3 fatty acids-vitamin E 1 cap PO DAILY 11/17/20 07/04/21 History 1,000 mg capsule potassium 99 mg tablet 99 mg PO DAILY 11/17/20 07/04/21 History clopidogrel 75 mg tablet (Plavix) 75 mg PO DAILY #90 tabs 01/28/21 07/04/21 Rx acetaminophen 500 mg tablet 1,000 mg PO Q6H PRN Pain 03/02/21 07/04/21 History (Tylenol Extra Strength) ascorbic acid (vitamin C) 500 mg 1 g PO DAILY 03/02/21 07/04/21 History tablet calcium carbonate 200 mg calcium 200 mg PO BID PRN Heartburn 03/02/21 07/04/21 History (500 mg) chewable tablet (Tums) cholecalciferol (vitamin D3) 25 50 mcg PO DAILY 03/02/21 07/04/21 History mcg (1,000 unit) tablet (Vitamin D3) dextromethorphan-guaifenesin 30 1 tablet PO Q12H PRN Cough 03/02/21 07/04/21 History mg-600 mg tablet extended [id number] hr (Mucinex DM) docusate sodium 100 mg capsule 100 mg PO DAILY 03/02/21 07/04/21 History vitamin E (dl, acetate) 180 mg 180 mg PO DAILY 03/02/21 07/04/21 History (400 unit) capsule donepezil 5 mg tablet (Aricept) 5 mg PO QHS #30 tabs 04/26/22 05/23/22 Rx doxycycline hyclate 100 mg capsule 100 mg PO BID #20 caps 07/04/21 07/04/21 Rx prednisone 10 mg tablet 10 mg PO DAILY #3 tabs 07/04/21 07/04/21 Rx Patient hx anesthesia problems: none Family hx anesthesia problems: none Results Review: All pre-operative results and documents have been reviewed as part of the pre-operative evaluation. [facility] Past Medical History Medical History Benign hypertension BMI 20.0-20.9, adult BMI 21.0-21.9, adult Dementia Depression GERD (gastroesophageal reflux disease) History of diabetes mellitus, type II Hyperlipidemia Left bundle branch block (LBBB) on electrocardiogram SOB (shortness of breath) Thrombocytopenia Uncontrolled type 2 diabetes mellitus with complication, without long-term current use of insulin Surgical History Surgical History S/P CABG (coronary artery bypass graft) x5 vessel, 2016 Family History Family History Sibling Family history of diabetes mellitus in first degree relative Family history of coronary artery disease COVID-19 Mother Family history of malignant neoplasm of breast in first degree relative Breast cancer Father , MVC No problems noted. 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
[2021-07-08] MEDS: LACTATED RINGERS 1,000 ML 30 ML IV CONT ×2 (11:00→13:47)
[2021-07-08] MEDS: ACETAMINOPHEN 500 MG TABLET 1000 MG PO (11:00)
[2021-07-08] MEDS: ceFAZolin 2 GM/D5W 50 ML 2 GM/50 ML BAG IVPB (12:34)
[2021-07-08] MEDS: LIDO 1%/EPINEPHRINE/PF 1:200,000 30 ML VIAL 10 ML XX (13:10)
[2021-07-08] MEDS: OXYMETAZOLINE HCL 0.05% NAS 15 ML BTL (*BKC) 1 SPRAY NASAL (13:10)
--- NOTE | 2021-07-08 14:33 | W.PM.PROC2 ---
Procedure Note - Detailed Date of Procedure 07/08/21 Pre-op Diagnosis Chronic Sinusitis turbinate hypertrophy, allergic fungal sinusitis, nasal obstruction, nasal congestion Post-op Diagnosis Same Procedure Performed Bilateral submucosal resection turbinates with outfracture, left-sided endoscopic image guided maxillary antrostomy with tissue removal, left-sided endoscopic anterior ethmoidectomy, left-sided endoscopic frontal sinusotomy Surgeon Regan Palumbo MD Indications See above Findings To physically large fungal ball which had eroded maxillary sinus the anterior ethmoids diseased polypoid tissue around much improved from previous examination. Tissue removed from the maxillary sinus copiously irrigated with sterile normal saline Description of Procedure Patient identified consent verified. Patient brought operating room. Time-out performed. General anesthesia induced endotracheal tube secured. Patient prepped and draped for procedure 2nd time-out performed. Image guidance initiated verified. Afrin-soaked pledgets placed in bilateral nasal passages allowed to sit for 5 minutes then removed. 0 degree endoscope utilized. Turbinates reduced 2 mm turbinate blade outfractured. Much more patent airway small left septal spur. Right side examined the sinus is no longer look diseased no polypoid tissue completely healed from previous exam. Left-sided large fungal ball and debris emanating from the maxillary sinus into the anterior ethmoids antrostomy completed with backbiter double ball tip probe image guidance fungal ball removed with suction 20 minutes of irrigation. Disease tissue maxillary sinus anterior ethmoids remnant cells opened with Kerrison image guidance microdebrider 70 degree scope in frontal sinus image guidance utilized to perform frontal sinusotomy suction and Cobra. Frontal sinus was not diseased. Bilateral nasal passages suction of the posterior choana. Total blood loss about 20 cc. I performed all dictated portions of the procedure. There were no complications. Patient tolerated the procedure very well. Care given to Anesthesiology. Estimated Blood Loss -20.0
--- NOTE | 2021-07-08 16:04 | SUR.PHASEII ---
1545: Vitals are stable. Patient is dressed and waiting for ride.
== END 2021-07-08 16:12 | disposition home or self-care (01) ==
PROVIDERS: PCP Family Medicine; Visit Provider Otolaryngology
PROC: (CPT 31254; principal; 2021-07-08 11:00)
DX: J32.0 Chronic maxillary sinusitis (principal); B48.8 Other specified mycoses; J34.2 Deviated nasal septum; J34.3 Hypertrophy of nasal turbinates; R09.81 Nasal congestion; R51.9 Headache, unspecified; R09.82 Postnasal drip; J34.89 Other specified disorders of nose and nasal sinuses; E11.9 Type 2 diabetes mellitus without complications; E78.5 Hyperlipidemia, unspecified; K21.9 Gastro-esophageal reflux disease without esophagitis; I10 Essential (primary) hypertension; F32.9 Major depressive disorder, single episode, unspecified; Z95.1 Presence of aortocoronary bypass graft; Z79.02 Long term (current) use of antithrombotics/antiplatelets
CPT/HCPCS: 31254; 31267; 31276; 30140; 61782; A9270; J0330; J0690; J1100; J2370; J2405; J2704; J3010; J7120

== ENCOUNTER 2021-10-14 22:37 | Emergency (ER) | payer MEDICARE, SELFPAY ==
--- NOTE | ~2021-10-14 | XR_ITS ---
EXAMINATION: XR chest 1V portable DATE: 10/14/2021 23:04 INDICATION: Chest pain TECHNIQUE: frontal view of the chest was obtained. COMPARISON: Chest radiograph dated 09/10/[address] dated 09/09/2018. FINDINGS: Unchanged small focus of mild lingular atelectasis/scarring at the lateral left lower lung zone. No o ther airspace opacities, pulmonary edema, pleural effusion or pneumothorax. The cardiomediastinal alexa houette is normal. Median sternotomy wires and mediastinal surgical clips are seen, likely from prior coronary artery bypass grafting. IMPRESSION: 1. No acute cardiopulmonary disease. Reviewed, dictated and finalized at location A.
--- NOTE | 2021-10-14 22:44 | ECG_ITS ---
Measurements Intervals Simpson Rate: 65 P: 30 MO: 192 QRS: 79 QRSD: 164 T: 58 QT: 450 QTc: 468 Interpretive Statements SINUS RHYTHM LEFT BUNDLE BRANCH BLOCK BASELINE ARTIFACT- I, II, III, AVR, AVL, AVF ABNORMAL ECG COMPARED TO ECG 05/20/2021 14:05:08 SINUS RHYTHM NOW PRESENT Electronically Signed On 10-15-2021 7:25:41 CDT by Matt Murphy D.O.
[2021-10-14 22:49] VITALS: BP 118/59; PULSE 65; PULSE 68; RESP 16; TEMP 36.8; O2SAT 100
[2021-10-14 23:23] LABS: Basophils Absolute Auto 0.1 K/mm3 (0.0-0.1); Basophils Percent Auto 0.9 % (0.2-1.2); Eosinophils Absolute Auto 0.2 K/mm3 (0-0.3); Eosinophils Percent Auto 4.3 % (0-4.4); Hematocrit 35.5 % (42.0-52.0); Immature Granulocyte Absolute 0.01 K/mm3 (0.00-0.031); Immature Granulocyte Percent A 0.2 % (0-0.5); Lymphocytes Absolute Auto 2.19 K/mm3 (0.9-3.2); Lymphocytes Percent Auto 38.8 % (18.3-44.2); Mean Corpuscular HGB Conc 33.8 g/dl (32-36); Mean Corpuscular Hemoglobin 32.3 pg (26-34); Mean Corpuscular Volume 95.4 fl (80-100); Mean Platelet Volume 12.8 fl (7.4-10.4); Monocytes Absolute Auto 0.5 K/mm3 (0.1-0.6); Monocytes Percent Auto 8.7 % (2.6-8.5); Neutrophils Absolute Auto 2.7 K/mm3 (1.3-6.7); Neutrophils Percent Auto 47.1 % (45.5-73.1); Platelet Count Result 115 k/mm3 (150-375); Red Blood Count 3.72 M/mm3 (4.6-6.20); Red Cell Distribution Width 12.7 % (11.5-14.5); White Blood Count 5.6 K/mm3 (4.5-10.0)
[2021-10-14 23:33] LABS: INR 1.2; Prothrombin Time 14.6 Seconds (11.1-14.7)
[2021-10-14 23:34] LABS: Partial Thromboplastin Time 27.2 SECONDS (22.3-36.8)
[2021-10-14 23:35] LABS: Alanine Aminotransferase 11 U/L (6-50); Albumin Level 4.3 g/dL (3.5-5.1); Alkaline Phosphatase 55 U/L (38-126); Anion Gap 9 mmol/L (8-16); Aspartate Amino Transferase 23 U/L (17-59); Bilirubin,Total 0.7 mg/dL (0.2-1.3); Blood Urea Nitrogen 24 mg/dL (9-20); Calcium 9.5 mg/dL (8.4-10.2); Carbon Dioxide 27 mmol/L (22-30); Chloride 104 mmol/L (98-107); Estimated CRCL calculation 44 ml/min; Estimated Glomerular Filt Rate > 60; Glucose 82 mg/dL (65-110); Lipase 84 U/L (23-300); Magnesium 2.3 mg/dL (1.6-2.3); Potassium 3.8 mmol/L (3.4-5.0); Sodium 140 mmol/L (137-145)
[2021-10-14 23:43] VITALS: BP 135/109; PULSE 52; RESP 12; O2SAT 100
[2021-10-14 23:47] VITALS: BP 124/56; PULSE 53; RESP 14; O2SAT 100
[2021-10-14 23:47] LABS: NT Pro B Type Natriuretic Pept 203 pg/mL (5-100); Troponin I < 0.012 ng/mL (0.000-0.034)
[2021-10-15] VITALS (10 sets, daily range): BP systolic 97–130; BP diastolic 43–58; PULSE 44–56; RESP 14–20; O2SAT 99–100
[2021-10-15] MEDS: NITROGLYCERIN SL 0.4 MG TABLET SUBLINGUAL (00:02)
--- NOTE | 2021-10-15 00:07 | PC.NURSE ---
Secong SL Nitro given at this time for reports of pain of 2/10 chest pain
--- NOTE | 2021-10-15 00:13 | ED.GENADULT ---
HPI - General Adult General Chief complaint: Chest Pain Stated complaint: CP Time Seen by Provider: 10/14/21 22:43 History of Present Illness HPI narrative: Patient is a 76-year-old gentleman who presents the emergency department with chief complaint of chest pain. Patient reports that started having discomfort in his chest this evening reports that it is tightness feeling reports it was improved by nitro and aspirin given to him by EMS. Patient states that essentially now his pain has resolved. Patient denies diaphoresis reports that it radiated to his arms. The patient reports that he has had a stress test in the last several months as a preop evaluation prior to having sinus surgery. Patient states that he had no vomiting no diarrhea denies abdominal pain reports the pain is not worsened with inspiration. Related Data Home Medications Medication Instructions Recorded Confirmed omega-3 fatty acids-vitamin E 1 cap PO DAILY 11/17/20 08/03/21 1,000 mg capsule potassium 99 mg tablet 99 mg PO DAILY 11/17/20 08/03/21 acetaminophen 500 mg tablet 1,000 mg PO Q6H PRN Pain 03/02/21 08/03/21 (Tylenol Extra Strength) ascorbic acid (vitamin C) 500 mg 1 g PO DAILY 03/02/21 08/03/21 tablet calcium carbonate 200 mg calcium 200 mg PO BID PRN Heartburn 03/02/21 08/03/21 (500 mg) chewable tablet (Tums) cholecalciferol (vitamin D3) 25 50 mcg PO DAILY 03/02/21 08/03/21 mcg (1,000 unit) tablet (Vitamin D3) dextromethorphan-guaifenesin 30 1 tablet PO Q12H PRN Cough 03/02/21 08/03/21 mg-600 mg tablet extended [id number] hr (Mucinex DM) docusate sodium 100 mg capsule 100 mg PO DAILY 03/02/21 08/03/21 vitamin E (dl, acetate) 180 mg 180 mg PO DAILY 03/02/21 08/03/21 (400 unit) capsule Allergies Allergy/AdvReac Type Severity Reaction Status Date / Time Penicillins Allergy Severe NAUSEA AND Verified 08/03/21 14:21 RASH Sulfa (Sulfonamide Allergy Severe Nausea AND Verified 08/03/21 14:21 Antibiotics) RASH Review of Systems Review of Systems: A 10 system review of systems was completed on the patient and is negative except for what is stated in the HPI. Nursing and ancillary documentation was reviewed. [facility] Past Medical History Medical History Benign hypertension BMI 20.0-20.9, adult BMI 21.0-21.9, adult Dementia Depression GERD (gastroesophageal reflux disease) History of diabetes mellitus, type II Hyperlipidemia Left bundle branch block (LBBB) on electrocardiogram SOB (shortness of breath) Thrombocytopenia Uncontrolled type 2 diabetes mellitus with complication, without long-term current use of insulin Surgical History Surgical History S/P CABG (coronary artery bypass graft) x5 vessel, 2016 Family History Family History Sibling Family history of diabetes mellitus in first degree relative Family history of coronary artery disease COVID-19 Mother Family history of malignant neoplasm of breast in first degree relative Breast cancer Father , MVC No problems noted. Social History Social History Smoking status: Never smoker Second hand tobacco smoke exposure: Yes Alcohol intake: never Substance use: never Substance use type: does not use Additional occupation/education comments: [employer] Gender identity (if verbalized by the patient): Male Spiritual care concerns: No Exam Narrative: GENERAL: Well-appearing, well-nourished, and in no acute distress. HEAD: Normocephalic, atraumatic. EYES: PERRLA and EOMI. ENT: Nares clear, no rhinorrhea or epistaxis. Mucous membranes moist. NECK: Supple. CHEST: Clear to auscultation. No respiratory distress. HEART: Regular rate and rhythm. No murmur heard. Nor
[2021-10-15 02:43] LABS: Lipase 110 U/L (23-300); Magnesium 2.2 mg/dL (1.6-2.3)
[2021-10-15 02:54] LABS: NT Pro B Type Natriuretic Pept 200 pg/mL (5-100)
[2021-10-15 02:57] LABS: Troponin I < 0.012 ng/mL (0.000-0.034)
== END 2021-10-15 03:26 | disposition home or self-care (01) ==
PROVIDERS: Emergency Provider Emergency Medicine; PCP Family Medicine
DX: R07.9 Chest pain, unspecified (principal); I10 Essential (primary) hypertension; F03.90 Unspecified dementia, unspecified severity, without behavioral disturbance, psychotic disturbance, mood disturbance, and anxiety; K21.9 Gastro-esophageal reflux disease without esophagitis; E11.9 Type 2 diabetes mellitus without complications; Z79.84 Long term (current) use of oral hypoglycemic drugs; Z95.1 Presence of aortocoronary bypass graft; I44.7 Left bundle-branch block, unspecified
CPT/HCPCS: 36415; 71045; 80053; 83690; 83735; 83880; 84484; 85025; 85610; 85730; 93005; 99284; A9270